=== PATIENT | male | born 1990 | race African-American/Black ===

== ENCOUNTER 2016-06-14 17:54 | Observation (INO) ==
[2016-06-14] MEDS ORDERED: ONDANSETRON 4 MG/2 ML VIAL IV STA ×2 (18:25→21:20)
[2016-06-14] MEDS ORDERED: HYDROmorphone 2 MG/1 ML VIAL IV STA ×2 (18:25→21:20)
[2016-06-14] MEDS ORDERED: ONDANSETRON 4 MG/2 ML VIAL ONE ×2 (18:28→21:33)
[2016-06-14] MEDS ORDERED: HYDROmorphone 2 MG/1 ML VIAL ONE ×2 (18:28→21:33)
--- NOTE | 2016-06-14 18:40 | Emergency Department Note ---
ISuzette Sierra, am scribing for, and in the presence of, Mary Olguin DO 18: 28. ISharif Debra, DO, personally performed the services described in this documentation, ascribed by Jillian Bradford in my presence, and it is both accurate and complete [id number] . Arrival - Arrival Chief Complaint: Abdominal / Flank Pain Stated Complaint: stomach pain really bad ED Nursing Triage Note: c/o abd pain onset this am. +n/d. states pain feels like it did when he had sbo in 2014 Mode of Arrival: Ambulatory Limitations: No Limitations Source: Patient - History of Present Illness HPI Narrative: Pt is a 26 y/o male that came to the ED with c/o abdominal pain that began this morning. Pt has associated sxs of N/D and loss of appetite. Pt states he had surgery in 2014 for his intestines being "turned around" and he states pain is similar. Pt reports the last time he ate or drank anything was last night due to not being able to today. He states he drove himself to the ED today. No other complaints/pain in ED at this time. Onset (ago): hour(s) Consistency: constant Severity: mild, moderate Severity scale (1-10): 4 Quality: sharp Allergies/Adverse Reactions: Allergies Allergy/AdvReac Type Severity Reaction Status Date / Time No Known Allergies Allergy Unverified 12/07/14 23:32 Home Medications: Home Medications Medication Instructions Recorded Confirmed Type No Known Home Medications [No 06/14/16 06/14/16 History Known Home Medications] Review of System - Review of System 12 point system: reviewed and no additional remarkable complaints except as stated - Review of System Constitutional: Absent: chills, fever Respiratory: Absent: cough Cardiovascular: Absent: chest pain Gastrointestinal: Present: abdominal pain, nausea, diarrhea Musculoskeletal: Absent: arm pain, back pain, leg pain, neck pain Skin: Absent: rash Neurological: Absent: headache Psychiatric: Absent: anxiety Medical,Surgical,& Family Hx - Medical History Gastrointestinal: History of: Bowel Obstruction (2011) Other: History of: Miscellaneous Medical Problems (HX OF ABSCESS) - Surgical History Abdominal Surgeries: Surgical HX of: Abdominal Surgery (05 JAN 2015) - Social History Smoking Status: Never smoker Frequency of Alcohol Use: None Type of Drug Use: None Exam Vital Signs: Vital Signs Temperature 97.5 F L 06/14/16 19:54 Pulse Rate 82 06/14/16 19:54 Respiratory Rate 20 06/14/16 19:54 Blood Pressure 132/76 06/14/16 19:54 O2 Sat by Pulse Oximetry 99 06/14/16 17:58 - General General appearance: alert, in no apparent distress - Head Head exam: Present: atraumatic, normocephalic - Eye Eye exam: Present: PERRL, EOMI - ENT ENT exam: Present: mucous membranes moist. Absent: mucous membranes dry - Neck Neck exam: Present: full ROM. Absent: tenderness - Chest Chest inspection: Present: symmetric chest wall rise. Absent: tenderness - Respiratory Respiratory exam: Present: normal lung sounds bilaterally. Absent: respiratory distress - Cardiovascular Cardiovascular exam: Present: regular rate, normal rhythm, normal heart sounds - Abdominal Exam Abdominal exam: Present: soft, distention (mildly distended), tenderness ( diffusely tender), guarding (mild guarding), hyperactive bowel sounds (mild hyperactive bowel sounds), other (midline scar consistent with prior surgery). Absent: rebound - Extremities Exam Extremities exam: Present: full ROM. Absent: tenderness - Back Exam Back exam: Present: full ROM. Absent: tenderness - Neurological Exam Neurological exam: Present: alert, oriented X3, CN II-XII intact. Absent: motor sensory deficit - Psychiatric Psychiatric exam: Present: normal affect, normal mood - Skin Skin exam: Present: warm, dry Course Course Narrative: spoke with Dr Jasso who will admit pt DR Stevens will be consulted if needed Results - Labs CBC & BMP: 06/14/16 18:34 06/14/16 18:34 Lab Results: I have reviewed the patients labs Labs: Laboratory Tests 06/14/16 18:34 WBC 13.2 H RBC 6.35 H Hct 53.5 H MCV 84.3 L Neut % (Auto) 94.1 H Lymph % (Auto) 2.0 L Neut # (Auto) 12.4 H Lymph # (Auto) 0.3 L Laboratory Tests 06/14/16 06/14/16 18:34 18:34 Band Neutrophils 12 H Lymphocytes 1 L Glucose 133 H Calcium 10.3 H Total Protein 8.9 H Globulin 4.3 H Albumin/Globulin Ratio 1.0 L - Diagnostic Findings Procedure: Abdominal x-ray: report reviewed by me (The stomach is distended with air, fluid and probable food. The colon is also mildly distended with air, and air fluid levels are seen at the colon. This could represent mild ileus or gastroentiritis.), CT Abdomen and Pelvis: report reviewed by me (Refer to findings.) Disposition Clinical Impression: Enteritis Case discussed with: patient Disposition: Still a Patient Condition: Stable Time of Disposition: 21:28
[2016-06-14 18:49] LABS: Basophils % 0.2 % (0.0-0.8); Hematocrit 53.5 VOL% (42.0-52.0); Hemoglobin 17.9 GM/DL (14.0-18.0); Immature Granulocytes % 0.3 %; Immature Granulocytes Absolute 0.04 #; Lymphocytes # 0.3 10*3/uL (1.4-4.0); Mean Corpuscular HGB Conc 33.5 GM/DL (32-36); Mean Corpuscular Hemoglobin 28 PG (27-34); Mean Corpuscular Volume 84.3 FL (87-102); Monocytes # 0.5 10*3/uL (0.11-0.8); Monocytes % 3.4 % (1.7-12.7); Neutrophils # 12.4 10*3/uL (1.4-7.4); Neutrophils % 94.1 % (38.7-73.9); Platelet Count 166 T/CUMM (130-400); Red Blood Count 6.35 MC/CUMM (3.8-5.5); Red Cell Distribution Width 12.8 % (9.3-17.3); White Blood Count 13.2 T/CUMM (4-12)
[2016-06-14 19:08] LABS: Albumin 4.6 G/DL (3.4-5.0); Bilirubin,Total 0.9 MG/DL (0.2-1.0); Calcium 10.3 MG/DL (8.5-10.1); Osmolality,Calculated 283.3 MOS/KG (273-304); Potassium 4.2 MMOL/L (3.5-5.1); Total Protein 8.9 G/DL (6.4-8.3)
[2016-06-14 19:09] LABS: Band Neutrophils 12 % (0-10); Lymphocytes 1 % (20-55); Segmented Neutrophils 84 % (50-85); Total Cells Counted 100
[2016-06-14 19:10] LABS: Platelet Estimate Adequate
--- NOTE | 2016-06-14 19:20 | XRay Report ---
Referring Physician: Mary Olguin DO Exam: XR abdomen 2V Date: June 14, 2016 at 6:27 PM Reason: Generalized abdominal pain, prior small bowel obstruction Comparison: Abdominal x-ray January 04, 2015, CT abdomen and pelvis January 05, 2015 Findings: The stomach is distended with air, fluid and probable food. The colon is also mildly distended with air. Air-fluid levels are seen at the colon, and note is made of air within the rectum. This could represent mild ileus or gastroenteritis. No free air is identified, and no definite renal calculi are seen. The osseous structures appear intact. Impression: The stomach is distended with air, fluid and probable food. The colon is also mildly distended with air, and air fluid levels are seen at the colon. This could represent mild ileus or gastroenteritis. PROCEDURE INTERPRETED AT [facility] DEPARTMENT OF RADIOLOGY Final Report Signed by: Dr. Brandon Steve
--- NOTE | 2016-06-14 20:09 | CT Report ---
Referring physician: Mary Olguin DO EXAM: CT abdomen and pelvis with contrast DATE: June 14, 2016 COMPARISON: CT abdomen and pelvis January 05, 2015 REASON: Generalized abdominal pain TECHNIQUE: Axial images of the abdomen and pelvis were obtained after administration of 100 cc of Omnipaque 350 IV contrast. Coronal and sagittal reformatted images were also provided. Total DLP is 440.6 mGy*cm. FINDINGS: Lower thorax: Minimal bibasilar atelectasis is present. ABDOMEN: Liver: Unremarkable. Gallbladder and bile ducts: The gallbladder is unremarkable. No biliary duct dilatation is present. Pancreas: Unremarkable. Spleen: Unremarkable. Adrenals: Unremarkable. Kidneys and ureters: No hydronephrosis or suspicious renal lesion is identified. The ureters are unremarkable as visualized. PELVIS: Bladder: Unremarkable. Reproductive: Unremarkable as visualized. ABDOMEN AND PELVIS: Bowel: The stomach is distended with air, fluid and probable food. This could reflect gastroparesis. There are several fluid-filled loops of small bowel, and the colon is mildly distended with air and fluid, mainly at the ascending colon and transverse colon. There is also air within the rectum. This could represent mild ileus or enteritis. Appendix: The appendix is poorly visualized, but there are no secondary signs of appendicitis. Vasculature: The abdominal aorta is normal in size. Peritoneum/retroperitoneum: No free air or ascites is seen. Lymph nodes: There are several upper normal size mesenteric lymph nodes. They are nonspecific but may be reactive. No suspicious retroperitoneal adenopathy is seen. Abdominal/pelvic wall: There is minimal fat within the left inguinal canal. Bones: There is incomplete osseous fusion of the posterior elements of S1. No acute osseous process is seen. IMPRESSION: The stomach is distended with air, fluid and probable food. This is nonspecific but may represent gastroparesis. There are also fluid-filled loops of small bowel, and the colon is mildly distended with air and fluid. This could represent mild ileus or enteritis. The CT exam was performed using one or more of the following dose reduction techniques: Automated exposure control and adjustment of the mA and/or kV according to patient size. PROCEDURE INTERPRETED AT [facility] DEPARTMENT OF RADIOLOGY Final Report Signed by: Dr. Brandon Steve
[2016-06-14] MEDS ORDERED: PIPERACILLIN/TAZOBACTAM 3,375 MG in SODIUM CHLORIDE 0.9% 100 ML IV STA (20:49)
[2016-06-14] MEDS ORDERED: PIPERACILLIN/TAZOBACTAM 3,375 MG VIAL IV ONE (21:33)
[2016-06-14] MEDS ORDERED: SODIUM CHLORIDE 0.9% 100 ML IV ONE (21:33)
--- NOTE | 2016-06-14 21:35 | Hospitalist History & Physical ---
Assessment and Plan (1) Enteritis Status: Acute Current Visit: Yes (2) Abdominal pain Status: Acute Assessment and plan: I plan for this patient will be admitted to our service. We will put place him on IV antibiotics. Recheck labs in the morning. Recheck a KUB in the morning. And consult Dr. Stevens . Current Visit: No History of Present Illness Chief complaint: abdominal pain History of present illness: Mr. 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 Patient reports that periodically he has trouble with abdominal pain. He notices it more when he sleeps on his stomach. He said that he went out a felt fine this morning but took a nap laying on her stomach when he woke up he had a pretty significant abdominal pain. He says it didn't feel as bad as his previous pain when he had to have the surgery but it did hurt enough to cause him to come up to the hospital for further evaluation. He had a CT scan of his abdomen and pelvis that showed his stomach was distended with air fluid and probable food. It was possible gastroenteritis. There is also fluid feel loops of small bowel and the colon was mildly distended with air and fluid level is could represent a mild ileus or enteritis. Patient does have a mild bump in his white count. I was consulted to admit him. The case was discussed with Dr. Stevens who did his previous surgery and he said that he would be happy to follow along with us Home Medications Medication Instructions Recorded Confirmed Type No Known Home Medications [No 06/14/16 06/14/16 History Known Home Medications] Allergies Allergy/AdvReac Type Severity Reaction Status Date / Time No Known Allergies Allergy Unverified 12/07/14 23:32 Medical,Surgical,& Family Hx - Medical History Gastrointestinal: History of: Bowel Obstruction (2011) Other: History of: Miscellaneous Medical Problems (HX OF ABSCESS) - Surgical History Abdominal Surgeries: Surgical HX of: Abdominal Surgery (05 JAN 2015) - Family History Additional Family History: none - Social History Smoking Status: Never smoker Frequency of Alcohol Use: None Type of Drug Use: None 12 point system: reviewed and no additional remarkable complaints except as stated Exam - Constitutional Vitals: Period Temp Pulse Resp BP Sys/Corbett Pulse Ox Last 24 Hr 97.5 F-97.5 F 75-82 20-20 132-134/76-76 99 General appearance: normal weight, no acute distress - Head Head exam: Present: normal inspection - Eye Eye exam: Present: EOMI. Absent: conjunctival injection Pupils: Present: ROJAS - ENT ENT exam: Present: normal exam - Neck Neck exam: Present: normal inspection - Respiratory Respiratory exam: Present: clear to auscultation bilaterally. - Cardiovascular Cardiovascular exam: Present: regular rate and rhythm - GI/Abdominal GI/Abdominal exam: Present: normal bowel sounds, patient does have tenderness appreciated in his upper quadrants rebound was appreciated - Extremities Exam Extremities exam: Present: normal inspection - Back Exam Back exam: Present: normal inspection - Neurological Exam Neurological exam: Present: alert, oriented X3 - Psychiatric Psychiatric exam: Present: normal affect - Skin Skin exam: Present: normal color Results - Labs CBC & BMP: 06/14/16 18:34 06/14/16 18:34
[2016-06-14] MEDS ORDERED: ONDANSETRON 4 MG/2 ML VIAL IV PRN (21:39)
[2016-06-14] MEDS ORDERED: ALUMINUM/MAGNES/SIMETH MAX STR 30 ML UDCUP PO PRN (21:41)
[2016-06-15] MEDS: metroNIDAZOLE INJ 500 MG in PREMIX 1 EACH IV SCH ×2 (00:47→05:30)
[2016-06-15] MEDS: HYDROmorphone 2 MG/1 ML VIAL IV PRN ×2 (00:52→05:30)
[2016-06-15] MEDS: CIPROFLOXACIN INJ 400 MG in PREMIX 1 EACH IV SCH ×2 (01:41→10:52)
[2016-06-15 08:05] LABS: Basophils # 0.1 10*3/uL (0.0-0.2); Basophils % 0.5 % (0.0-0.8); Eosinophils % 0.4 % (0.00-10.9); Hematocrit 53.1 VOL% (42.0-52.0); Hemoglobin 17.5 GM/DL (14.0-18.0); Immature Granulocytes % 0.2 %; Immature Granulocytes Absolute 0.02 #; Lymphocytes # 0.9 10*3/uL (1.4-4.0); Lymphocytes % 8.4 % (21.2-54.2); Mean Corpuscular Hemoglobin 28 PG (27-34); Mean Corpuscular Volume 84.3 FL (87-102); Mean Platelet Volume 11.8 FL (9.6-12.0); Monocytes % 9.7 % (1.7-12.7); Neutrophils # 8.6 10*3/uL (1.4-7.4); Neutrophils % 80.8 % (38.7-73.9); Platelet Count 129 T/CUMM (130-400); Red Cell Distribution Width 12.9 % (9.3-17.3); White Blood Count 10.7 T/CUMM (4-12)
[2016-06-15 08:30] LABS: Calcium 9.8 MG/DL (8.5-10.1); Osmolality,Calculated 277.7 MOS/KG (273-304); Potassium 4.1 MMOL/L (3.5-5.1)
[2016-06-15] MEDS ORDERED: PANTOPRAZOLE 40 MG TABLET PO SCH (09:00)
[2016-06-15 09:24] VITALS: BP 153/86
--- NOTE | 2016-06-15 10:09 | XRay Report ---
Exam: XR KUB Date: 06/15/2016 4:00 AM Comparison: 06/14/2016 Indication: Abdominal pain Findings: Lung bases unremarkable. The liver and spleen are unremarkable Renal contours are partially obscured The bony structures are intact. No obvious pneumoperitoneum. Moderately dilated large and small bowel gas pattern Impression: 1. Abdominal ileus pattern present PROCEDURE INTERPRETED AT [facility] DEPARTMENT OF RADIOLOGY Final Report Signed by: Dr. Eddy Sahni
--- NOTE | 2016-06-15 10:33 | Discharge Summary ---
Hospital Course - Hospital Course Hospital Course: Mr. Oates was admitted from the ER last night with abdominal pain and diarrhea. He has a hx of GI difficulties and has frequent symptoms approximately every 6 months. He also has a history of a volvulus that was operated on in December [address] Stevens[address] scan of the abdomen and pelvis did not show any signs of obstruction or volvulus last night. He does have evidence of enteritis and possibly gastroparesis. He is started having more and more diarrhea overnight. His abdominal pain has improved. No nausea or vomiting. The patient's IV was discontinued by his choice due to pain. He refuses to have another one placed. He is interested in going home and continuing oral hydration. I lengthy discussion with the patient and his mother at the bedside regarding the need for IV fluids and further evaluation. The patient refuses. I will transition him to oral Cipro and Flagyl as well as given a prescription for Phenergan as needed for nausea if it develops. He'll be discharged home to follow-up with his primary care physician. I've recommended outpatient GI follow-up for evaluation of his recurring symptoms. According to his mother he's never had a colonoscopy or EGD. He is otherwise healthy and has no other medical problems and does not take any medications. This could very well be related to a fast food that he ate on Wednesday preceding the symptoms. He denies any sick contacts or fever or chills. He is medically stable for discharge home and will follow-up as an outpatient. Further review of his labs shows that he is dehydrated however since he is refusing IV fluids without much of a choice but to push oral intake. - Time spent with patient Time with patient DS: Greater than 30 minutes Diagnosis - Discharge Diagnosis (1) Abdominal pain Status: Acute (2) Enteritis Status: Acute Discharge Plan - Discharge Data Disposition: Disch To Home/Self Care Condition at Discharge: Stable Discharge Diet: advance to your usual diet (push oral fluids) Activity: resume usual activities as tolerated Hygiene: no restrictions - Discharge Medications New Promethazine Tab [Phenergan Tab] 25 mg PO Q4H #30 tablet Alum/Mag/Simeth Max Str Liquid [Mylanta Max Strength Liquid] 30 ml PO Q4H PRN #0 PRN Reason: Dyspepsia Ciprofloxacin Tab [Cipro Tab] 500 mg PO BID #14 tablet metroNIDAZOLE TAB [Flagyl Cap/Tab] 500 mg PO TID #21 tablet - Follow Up or Referral Follow Up: Dixon Joshi MD [Physician] - Eddy Warner MD [Physician] - - Forms/Instructions Exam - Constitutional Vitals: Period Temp Pulse Resp BP Sys/Corbett Pulse Ox Last 24 Hr 97.5 F-98.2 F 80-113 14-20 124-153/73-86 98-100 General appearance: no acute distress - Head Head exam: Present: normal inspection, normocephalic, atraumatic - Eye Eye exam: Present: EOMI - Respiratory Respiratory exam: Present: clear to auscultation bilaterally - Cardiovascular Cardiovascular exam: Present: regular rate and rhythm - GI/Abdominal GI/Abdominal exam: Present: normal bowel sounds, tenderness, soft - Extremities Exam Extremities exam: Absent: edema - Neurological Exam Neurological exam: Present: alert, oriented X3 - Psychiatric Psychiatric exam: Present: normal affect, normal mood - Skin Skin exam: Present: normal color, warm, dry Discharge Results Labs on day of discharge: Labs from last 24 hours 06/15/16 06/15/16 07:49 07:49 WBC 10.7 RBC 6.30 H Hgb 17.5 Hct 53.1 H MCV 84.3 L MCH 28 MCHC 33.0 RDW 12.9 Plt Count 129 L D MPV 11.8 Neut % (Auto) 80.8 H Lymph % (Auto) 8.4 L Sandoval % (Auto) 9.7 Eos % (Auto) 0.4 Baso % (Auto) 0.5 Neut # (Auto) 8.6 H Lymph # (Auto) 0.9 L Sandoval # (Auto) 1.0 H Eos # (Auto) 0.0 Baso # (Auto) 0.1 Immature Gran % 0.2 Nucleated RBC % 0.0 Immature Gran # 0.02 Nucleated RBCs # 0.00 Sodium 138 Potassium 4.1 Chloride 103 Carbon Dioxide 23 Anion Gap 16.1 H BUN 19 H Creatinine 1.60 H GFR Calculation 70 BUN/Creatinine Ratio 11.00 Glucose 115 H Calculated Osmolality 277.7 Calcium 9.8 - Imaging and Cardiology Procedure: CT Abdomen and Pelvis: image reviewed by me, report reviewed by me DS: Provider Date of admission: 06/14/16 21:39 Primary care physician: . No PCP Attending physician on admission: Nani Marcial MD Consults: Dr. Stevens Discharging clinician: Cindi Thompson MD Expected date of discharge: 06/15/16
--- NOTE | 2016-06-16 09:58 | General Surgery Consult Note ---
Assessment and Plan (1) Abdominal pain Status: Acute Assessment and plan: This patient has abdominal pain which had resolved by the time I saw him. This does sound consistent with some sort of viral gastroenteritis but because he is having recurrent episodes and because he had a volvulus at the time of his initial surgery I have recommended getting an outpatient upper GI with small bowel follow-through to determine if there is any degree of malrotation present. The patient developed recurrent symptoms he was told to come back to the ER and if he has evidence of recurrent cecal volvulus at any time he would be a candidate for a right colectomy. I will set up the study and see him in clinic as an outpatient. History of Present Illness Chief complaint: Abdominal pain History of present illness: Mr. 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 By the time I saw him he is doing much better and his pain was gone. He says he has not had another episode similar to this and he is admitted to the hospital with ileus and gastroenteritis he does have severe distention of his stomach which raise the question of gastroparesis. Home Medications Medication Instructions Recorded Confirmed Type Alum/Mag/Simeth Max Str Liquid 30 ml PO Q4H PRN #0 06/15/16 Rx [Mylanta Max Strength Liquid] Ciprofloxacin Tab [Cipro Tab] 500 mg PO BID #14 tablet 06/15/16 Rx Metoclopramide Tab [Reglan Tab] 10 mg PO Q6H #20 tablet 06/15/16 Rx Promethazine Tab [Phenergan Tab] 25 mg PO Q4H #30 tablet 06/15/16 Rx metroNIDAZOLE TAB [Flagyl Cap/Tab] 500 mg PO TID #21 tablet 06/15/16 Rx Allergies Allergy/AdvReac Type Severity Reaction Status Date / Time No Known Allergies Allergy Unverified 12/07/14 23:32 Medical,Surgical,& Family Hx - Medical History Gastrointestinal: History of: Bowel Obstruction (2011) Other: History of: Miscellaneous Medical Problems (HX OF ABSCESS) - Surgical History Abdominal Surgeries: Surgical HX of: Abdominal Surgery (05 JAN 2015) - Social History Smoking Status: Never smoker Frequency of Alcohol Use: None Type of Drug Use: None - Constitutional Constitutional: Present: as per HPI - EENT Nose, mouth and throat: Present: as per HPI - Cardiovascular Cardiovascular: Present: as per HPI - Respiratory Respiratory: Present: as per HPI - Gastrointestinal Gastrointestinal: Present: as per HPI - Genitourinary Genitourinary: Present: as per HPI - Musculoskeletal Musculoskeletal: Present: as per HPI - Neurological Neurological: Present: as per HPI - Endocrine Endocrine: Present: as per HPI Hematologic/Lymphatic: Present: as per HPI Exam - Constitutional General appearance: normal weight, no acute distress - Head Head exam: Present: normal inspection, normocephalic - Eye Eye exam: Present: EOMI Pupils: Present: ROJAS - ENT ENT exam: Present: normal exam Mouth exam: Present: normal external inspection, normal voice - Neck Neck exam: Present: normal inspection, trachea midline - Respiratory Respiratory exam: Present: clear to auscultation bilaterally. Absent: accessory muscle use, chest wall tenderness - Cardiovascular Cardiovascular exam: Present: RRR. Absent: systolic murmur, tachycardia - GI/Abdominal GI/Abdominal exam: Present: normal bowel sounds, soft. Absent: tenderness, rebound - Extremities Exam Extremities exam: Present: normal inspection, normal capillary refill - Back Exam Back exam: Present: normal inspection - Neurological Exam Neurological exam: Present: alert, oriented X3 Speech: Present: normal - Skin Skin exam: Present: normal color, warm Quality Measures - Stroke Symptom Onset Unknown: No Results - Labs CBC & BMP: 06/15/16 07:49 06/15/16 07:49 - Diagnostic Findings Procedure: CT Abdomen and Pelvis: image reviewed by me, report reviewed by me ( There is no bowel obstruction. There is evidence of gastroparesis and ileus.) Specialty Discharge - Follow Up or Referrals Follow up with: Dixon Joshi MD [Physician] - Eddy Warner MD [Physician] - (left voicemail)
== END 2016-06-15 12:00 | disposition home or self-care (01) ==
LOC: N.ED 17:54 → N.EDINP 17:54 → N.5E 22:20
PROVIDERS: ADMIT Internal Medicine; ATTEND Internal Medicine

== ENCOUNTER 2022-03-13 08:26 | Inpatient (IN) ==
[2022-03-13] MEDS ORDERED: SODIUM CHLORIDE 0.9% 1,000 ML IV STA (09:05)
[2022-03-13] MEDS ORDERED: HYDROmorphone 1 MG/1 ML SYRINGE IV STA (09:05)
[2022-03-13] MEDS ORDERED: ONDANSETRON 4 MG/2 ML VIAL IV STA (09:05)
[2022-03-13 09:15] LABS: Basophils # 0.1 10*3/uL (0.0-0.2); Basophils % 0.7 % (0.0-0.8); Eosinophils # 0.3 10*3/uL (0.0-0.87); Eosinophils % 4.5 % (0.00-10.9); Hematocrit 54.3 VOL% (42.0-52.0); Hemoglobin 17.5 GM/DL (14.0-18.0); Immature Granulocytes % 0.7 %; Immature Granulocytes Absolute 0.05 #; Lymphocytes # 1.6 10*3/uL (1.4-4.0); Mean Corpuscular HGB Conc 32.2 GM/DL (32-36); Mean Corpuscular Volume 87.2 FL (87-102); Mean Platelet Volume 10.5 FL (9.6-12.0); Monocytes # 1.1 10*3/uL (0.11-0.8); Monocytes % 14.9 % (1.7-12.7); Neutrophils % 57.2 % (38.7-73.9); Platelet Count 260 T/CUMM (130-400); Red Blood Count 6.23 MC/CUMM (3.8-5.5); White Blood Count 7.3 T/CUMM (4-12)
[2022-03-13 09:42] LABS: Alanine Aminotransferase 22 U/L (16-61); Albumin 3.9 G/DL (3.4-5.0); Alkaline Phosphatase 67 U/L (45-117); Aspartate Amino Transferase 9 U/L (0-37); Blood Urea Nitrogen 15 MG/DL (7-18); Calcium 9.3 MG/DL (8.5-10.1); Carbon Dioxide 30 MMOL/L (21-32); Chloride 101 MMOL/L (98-107); Glucose 97 MG/DL (74-106); Potassium 3.3 MMOL/L (3.5-5.1); Sodium 136 MMOL/L (136-145); Total Protein 8.5 G/DL (6.4-8.2)
[2022-03-13 10:04] LABS: Band Neutrophils 37 % (0-10); Eosinophils 5 % (0-10); Lymphocytes 27 % (20-55); Metamyelocytes 1 %; Total Cells Counted 100
[2022-03-13 10:05] LABS: Burr Cells Few; Platelet Estimate Normal
[2022-03-13] MEDS ORDERED: PROMETHAZINE 25 MG/1 ML VIAL IM PRN (12:09)
[2022-03-13] MEDS ORDERED: ONDANSETRON 4 MG/2 ML VIAL IV PRN (12:09)
[2022-03-13] MEDS: LACTATED RINGERS 1,000 ML IV SCH (12:50)
[2022-03-13] MEDS: PIPERACILLIN/TAZOBACTAM 3,375 MG in SODIUM CHLORIDE 0.9% 100 ML IV SCH ×2 (12:50→20:43)
[2022-03-13] MEDS: HYDROmorphone 1 MG/1 ML SYRINGE IV PRN ×3 (13:22→23:42)
[2022-03-13 13:46] LABS: Glucose,Urine (UA) Negative (Negative); Protein,Urine Trace mg/dL (Negative); Urine Appearance Clear (Clear); Urine Color Yellow (Yellow)
[2022-03-13 13:47] LABS: Bilirubin,Urine Negative (Negative); Blood, Urine Negative (Negative); Ketones,Urine 15 mg/dL (Negative); Nitrite,Urine Negative (Negative); Urine Urobilinogen 0.2 eU/dL (<2.0)
[2022-03-13 13:50] LABS: Mucus,Urine Occasional /LPF (Occasional); RBC,Urine 1 /HPF (0-4)
[2022-03-14] MEDS: HYDROmorphone 1 MG/1 ML SYRINGE IV PRN ×6 (03:25→20:57)
[2022-03-14] MEDS: PIPERACILLIN/TAZOBACTAM 3,375 MG in SODIUM CHLORIDE 0.9% 100 ML IV SCH ×3 (04:40→20:57)
[2022-03-14] MEDS: ENOXAPARIN 40 MG/0.4 ML SYRINGE SUBCUT SCH (07:24)
[2022-03-14] MEDS: PANTOPRAZOLE 40 MG VIAL IV SCH (08:20)
[2022-03-14 08:44] LABS: Basophils % 0.4 % (0.0-0.8); Eosinophils # 0.2 10*3/uL (0.0-0.87); Eosinophils % 3.2 % (0.00-10.9); Hematocrit 49.1 VOL% (42.0-52.0); Immature Granulocytes % 0.6 %; Immature Granulocytes Absolute 0.04 #; Lymphocytes # 0.9 10*3/uL (1.4-4.0); Lymphocytes % 12.3 % (21.2-54.2); Mean Corpuscular HGB Conc 32.6 GM/DL (32-36); Mean Corpuscular Volume 86.1 FL (87-102); Mean Platelet Volume 10.2 FL (9.6-12.0); Monocytes # 0.7 10*3/uL (0.11-0.8); Monocytes % 10.4 % (1.7-12.7); Neutrophils % 73.1 % (38.7-73.9); Platelet Count 235 T/CUMM (130-400); Red Cell Distribution Width 12.9 % (9.3-17.3); White Blood Count 6.9 T/CUMM (4-12)
[2022-03-14 09:04] LABS: Band Neutrophils 8 % (0-10); Eosinophils 3 % (0-10); Lymphocytes 9 % (20-55); Microcytosis Slight; Ovalocytes Slight; Platelet Estimate Normal; Total Cells Counted 100
[2022-03-14 09:06] LABS: Osmolality,Calculated 278.5 MOS/KG (273-304); Potassium 3.2 MMOL/L (3.5-5.1)
[2022-03-14] MEDS: LACTATED RINGERS 1,000 ML IV SCH ×2 (09:41→12:49)
[2022-03-15] MEDS: PIPERACILLIN/TAZOBACTAM 3,375 MG in SODIUM CHLORIDE 0.9% 100 ML IV SCH ×3 (05:15→20:52)
[2022-03-15] MEDS: ENOXAPARIN 40 MG/0.4 ML SYRINGE SUBCUT SCH (07:02)
[2022-03-15 08:48] LABS: Basophils % 0.3 % (0.0-0.8); Eosinophils # 0.2 10*3/uL (0.0-0.87); Eosinophils % 2.2 % (0.00-10.9); Hematocrit 46.9 VOL% (42.0-52.0); Hemoglobin 15.2 GM/DL (14.0-18.0); Immature Granulocytes % 0.9 %; Immature Granulocytes Absolute 0.07 #; Lymphocytes # 1.2 10*3/uL (1.4-4.0); Mean Corpuscular HGB Conc 32.4 GM/DL (32-36); Mean Corpuscular Volume 86.1 FL (87-102); Mean Platelet Volume 10.7 FL (9.6-12.0); Monocytes # 0.8 10*3/uL (0.11-0.8); Monocytes % 10.2 % (1.7-12.7); Neutrophils % 71.4 % (38.7-73.9); Platelet Count 245 T/CUMM (130-400); Red Blood Count 5.45 MC/CUMM (3.8-5.5); Red Cell Distribution Width 12.6 % (9.3-17.3); White Blood Count 7.7 T/CUMM (4-12)
[2022-03-15 09:09] LABS: Albumin 3.1 G/DL (3.4-5.0); Bilirubin,Total 0.7 MG/DL (0.20-1.00); Calcium 9.1 MG/DL (8.5-10.1); Osmolality,Calculated 278.4 MOS/KG (273-304); Potassium 3.1 MMOL/L (3.5-5.1); Total Protein 6.9 G/DL (6.4-8.2)
[2022-03-15] MEDS: HYDROmorphone 1 MG/1 ML SYRINGE IV PRN ×2 (09:18→12:33)
[2022-03-15] MEDS: LACTATED RINGERS 1,000 ML IV SCH (09:19)
[2022-03-15] MEDS: PANTOPRAZOLE 40 MG VIAL IV SCH (09:19)
[2022-03-15] MEDS: ACETAMINOPHEN 325 MG TABLET PO PRN (22:14)
[2022-03-16] MEDS: PIPERACILLIN/TAZOBACTAM 3,375 MG in SODIUM CHLORIDE 0.9% 100 ML IV SCH ×3 (04:18→20:36)
[2022-03-16] MEDS: ACETAMINOPHEN 325 MG TABLET PO PRN (04:49)
[2022-03-16 05:39] LABS: Basophils % 0.3 % (0.0-0.8); Eosinophils # 0.2 10*3/uL (0.0-0.87); Eosinophils % 2.6 % (0.00-10.9); Hematocrit 43.3 VOL% (42.0-52.0); Hemoglobin 14.3 GM/DL (14.0-18.0); Immature Granulocytes % 1.1 %; Immature Granulocytes Absolute 0.07 #; Lymphocytes # 1.4 10*3/uL (1.4-4.0); Mean Corpuscular Volume 85.7 FL (87-102); Mean Platelet Volume 10.8 FL (9.6-12.0); Monocytes # 0.7 10*3/uL (0.11-0.8); Monocytes % 10.6 % (1.7-12.7); Neutrophils % 64.4 % (38.7-73.9); Platelet Count 217 T/CUMM (130-400); Red Blood Count 5.05 MC/CUMM (3.8-5.5); Red Cell Distribution Width 12.6 % (9.3-17.3); White Blood Count 6.5 T/CUMM (4-12)
[2022-03-16] MEDS: ENOXAPARIN 40 MG/0.4 ML SYRINGE SUBCUT SCH (06:30)
[2022-03-16 06:32] LABS: Calcium 9.1 MG/DL (8.5-10.1); Osmolality,Calculated 277.5 MOS/KG (273-304); Potassium 3.1 MMOL/L (3.5-5.1)
[2022-03-16] MEDS: LACTATED RINGERS 1,000 ML IV SCH ×3 (08:00→23:53)
[2022-03-16] MEDS: HYDROmorphone 1 MG/1 ML SYRINGE IV PRN ×2 (08:00→11:00)
[2022-03-16] MEDS: PANTOPRAZOLE 40 MG VIAL IV SCH (08:01)
[2022-03-16] MEDS: POTASSIUM CHLORIDE RIDER 10 MEQ/100 ML PREMIX IV PRN ×2 (15:08→20:36)
[2022-03-17] MEDS: POTASSIUM CHLORIDE RIDER 10 MEQ/100 ML PREMIX IV PRN ×4 (03:56→10:49)
[2022-03-17] MEDS: PIPERACILLIN/TAZOBACTAM 3,375 MG in SODIUM CHLORIDE 0.9% 100 ML IV SCH ×3 (03:56→20:47)
[2022-03-17] MEDS: PANTOPRAZOLE 40 MG VIAL IV SCH (09:33)
[2022-03-17] MEDS: LACTATED RINGERS 1,000 ML IV SCH ×4 (10:35→20:49)
[2022-03-17] MEDS ORDERED: LIDOCAINE 2% 5 ML VIAL ONE (12:33)
[2022-03-17] MEDS ORDERED: propofoL 200 MG/20 ML VIAL IV ONE ×2 (12:33)
[2022-03-17] MEDS: HYDROmorphone 1 MG/1 ML SYRINGE IV PRN (20:47)
[2022-03-18] MEDS: PIPERACILLIN/TAZOBACTAM 3,375 MG in SODIUM CHLORIDE 0.9% 100 ML IV SCH ×3 (04:07→20:30)
[2022-03-18] MEDS: HYDROmorphone 1 MG/1 ML SYRINGE IV PRN ×2 (06:45→19:28)
[2022-03-18] MEDS: PANTOPRAZOLE 40 MG VIAL IV SCH (10:04)
[2022-03-18] MEDS: LACTATED RINGERS 1,000 ML IV SCH ×3 (10:15→23:36)
[2022-03-19] MEDS: PIPERACILLIN/TAZOBACTAM 3,375 MG in SODIUM CHLORIDE 0.9% 100 ML IV SCH (04:40)
[2022-03-19 07:53] VITALS: BP 133/87
[2022-03-19] MEDS: PANTOPRAZOLE 40 MG VIAL IV SCH (09:16)
[2022-03-19] MEDS: LACTATED RINGERS 1,000 ML IV SCH (09:16)
== END 2022-03-19 11:38 | disposition home or self-care (01) | DRG 392 ==
LOC: N.ED 08:26 → N.EDINP 12:09 → N.3E 14:45
PROVIDERS: ADMIT Student in an Organized Health Care Education/Training Program; ATTEND Student in an Organized Health Care Education/Training Program

== ENCOUNTER 2022-04-09 03:48 | Observation (INO) ==
[2022-04-09] MEDS ORDERED: PANTOPRAZOLE 40 MG VIAL IV STA (04:05)
[2022-04-09] MEDS ORDERED: SODIUM CHLORIDE 0.9% 1,000 ML IV STA (04:05)
[2022-04-09] MEDS ORDERED: KETOROLAC 30 MG/1 ML VIAL IV STA (04:05)
[2022-04-09] MEDS ORDERED: HYDROmorphone 1 MG/1 ML SYRINGE IV STA (04:05)
[2022-04-09] MEDS ORDERED: ONDANSETRON 4 MG/2 ML VIAL IV STA (04:05)
[2022-04-09 04:36] LABS: Basophils % 0.1 % (0.0-0.8); Eosinophils % 0.1 % (0.00-10.9); Hematocrit 54.1 VOL% (42.0-52.0); Hemoglobin 16.8 GM/DL (14.0-18.0); Immature Granulocytes % 0.4 %; Immature Granulocytes Absolute 0.04 #; Lymphocytes # 0.8 10*3/uL (1.4-4.0); Lymphocytes % 7.9 % (21.2-54.2); Mean Corpuscular HGB Conc 31.1 GM/DL (32-36); Mean Corpuscular Volume 89.3 FL (87-102); Mean Platelet Volume 10.3 FL (9.6-12.0); Monocytes # 0.4 10*3/uL (0.11-0.8); Monocytes % 3.6 % (1.7-12.7); Neutrophils % 87.9 % (38.7-73.9); Platelet Count 339 T/CUMM (130-400); Red Blood Count 6.06 MC/CUMM (3.8-5.5); Red Cell Distribution Width 13.4 % (9.3-17.3); White Blood Count 10.1 T/CUMM (4-12)
[2022-04-09 04:56] LABS: Alanine Aminotransferase 26 U/L (16-61); Albumin 4.1 G/DL (3.4-5.0); Alkaline Phosphatase 68 U/L (45-117); Amylase 491 U/L (25-115); Aspartate Amino Transferase 13 U/L (0-37); Blood Urea Nitrogen 15 MG/DL (7-18); Calcium 10.1 MG/DL (8.5-10.1); Carbon Dioxide 28 MMOL/L (21-32); Chloride 106 MMOL/L (98-107); Glucose 120 MG/DL (74-106); Osmolality,Calculated 280.4 MOS/KG (273-304); Potassium 4.4 MMOL/L (3.5-5.1); Sodium 140 MMOL/L (136-145); Total Protein 7.8 G/DL (6.4-8.2)
[2022-04-09] MEDS ORDERED: SODIUM CHLORIDE 0.9% 2,150 ML IV ONE (04:57)
[2022-04-09] MEDS: PIPERACILLIN/TAZOBACTAM 3,375 MG in SODIUM CHLORIDE 0.9% 100 ML IV SCH ×3 (05:21→20:28)
[2022-04-09] MEDS ORDERED: ACETAMINOPHEN 325 MG TABLET PO PRN (06:06)
[2022-04-09] MEDS ORDERED: PROMETHAZINE 25 MG/1 ML VIAL IV PRN (06:06)
[2022-04-09] MEDS ORDERED: ONDANSETRON 4 MG/2 ML VIAL IV PRN (06:06)
[2022-04-09] MEDS: HYDROmorphone 1 MG/1 ML SYRINGE IV PRN ×2 (06:40→21:51)
[2022-04-09] MEDS: LACTATED RINGERS 1,000 ML IV SCH ×2 (07:09→13:03)
[2022-04-09] MEDS: predniSONE 20 MG TABLET PO SCH (10:56)
[2022-04-09] MEDS ORDERED: ENOXAPARIN 40 MG/0.4 ML SYRINGE SUBCUT SCH (21:00)
[2022-04-10] MEDS: LACTATED RINGERS 1,000 ML IV SCH (04:59)
[2022-04-10] MEDS: PIPERACILLIN/TAZOBACTAM 3,375 MG in SODIUM CHLORIDE 0.9% 100 ML IV SCH (05:09)
[2022-04-10] MEDS ORDERED: PANTOPRAZOLE 40 MG VIAL IV SCH (09:00)
[2022-04-10 09:13] VITALS: BP 116/68
[2022-04-10] MEDS: predniSONE 20 MG TABLET PO SCH (09:16)
== END 2022-04-10 11:08 | disposition home or self-care (01) ==
LOC: SUATTDRO → N.ED 03:48 → N.EDINP 03:48 → N.2W 09:07 → N.2E 16:24
PROVIDERS: ADMIT Family Medicine; ATTEND Family Medicine